=== PATIENT | female | born 1995 ===

== ENCOUNTER 2017-06-04 00:33 | Emergency (ER) | payer SELFPAY ==
[2017-06-04 00:43] VITALS: RESP 16
[2017-06-04] MEDS ORDERED: Sodium Chloride 0.9% 1,000 ML IV ONE (01:07)
[2017-06-04 01:27] VITALS: O2SAT 100
[2017-06-04 01:30] LABS: BASO # 0.1 K/uL (0.0-0.2); BASO % 0.6 % (0.0-2.0); EOS # 0.5 K/uL (0.0-0.7); EOS % 5.2 % (0.0-4.0); HEMATOCRIT 40.5 % (34.0-47.0); LYMPH # 2.1 K/uL (1.0-4.3); LYMPH % 23.2 % (20.0-40.0); MEAN CELL VOLUME 92.6 fL (81.0-99.0); MEAN CORPUSCULAR HEMOGLOBIN 30.8 pg (27.0-31.0); MEAN CORPUSCULAR HGB CONC 33.3 g/dL (33.0-37.0); MEAN PLATELET VOLUME 7.3 fL (7.2-11.7); MONO # 0.8 K/uL (0.0-0.8); MONO % 8.5 % (0.0-10.0); RED CELL DISTRIBUTION WIDTH 12.7 % (11.5-14.5); WHITE BLOOD COUNT 9.1 K/uL (4.8-10.8)
[2017-06-04 01:42] LABS: ALB/GLOB RATIO 1.3 (1.0-2.1); ALCOHOL SERUM < 10 mg/dl (0-10); ALKALINE PHOSPHATASE 80 U/L (38-126); ALT/SGPT 37 U/L (9-52); AST/SGOT 30 U/L (14-36); BILIRUBIN,TOTAL 0.5 mg/dL (0.2-1.3); BLOOD UREA NITROGEN 15 mg/dL (7-17); CALCIUM 9.5 mg/dl (8.6-10.4); CARBON DIOXIDE 25 mmol/L (22-30); CHLORIDE 101 mmol/L (98-107); GFR AFRICAN-AMERICAN > 60; GLUCOSE,RANDOM 83 mg/dL (65-105); MAGNESIUM 1.9 mg/dL (1.6-2.3); POTASSIUM 4.2 mmol/L (3.6-5.2); SODIUM 141 mmol/L (132-148)
[2017-06-04 01:43] LABS: PARTIAL THROMBOPLASTIN TIME 39 SECONDS (21-34)
--- NOTE | 2017-06-04 02:36 | C.PDOC ---
History Of Present Illness Pt had a syncopal episode. Pt states witness told her that she was having minor shaking, but no major convulsions. Time Seen by Provider: 06/04/17 00:48 Chief Complaint (Nursing): Syncope History Per: Patient, Family Onset/Duration Of Symptoms: Other (around 10pm tonight) Current Symptoms Are (Timing): Better Number Of Syncopal Episodes: 1 Activity At Onset Of Symptoms: Standing Associated Symptoms Preceding Syncopal Episode: Lightheadedness Seizure Or Post-ictal Symptoms: denies: Post-ictal Period, Incontinent Of Urine , Incontinent Of Stool, Bit Tongue Fall Associated With With Symptoms: No Severity: Moderate Additional History Per: Prior Records - Symptoms Of CVA Associated Symptoms: denies: Impaired Speech, Seizure Activity, New Vision Deficit(Left), New Vision Deficit(Right), Decreased Ability To Walk, New Confusion Past Medical History Reviewed: Historical Data, Nursing Documentation, Vital Signs Vital Signs: Last Vital Signs Temp 98.0 F 06/04/17 00:38 Pulse 64 06/04/17 01:25 Resp 16 06/04/17 01:25 BP 101/50 L 06/04/17 01:25 Pulse Ox 100 06/04/17 01:25 - Medical History PMH: No Chronic Diseases Surgical History: No Surg Hx Family History: States: Unknown Family Hx - Social History Hx Tobacco Use: No Hx Alcohol Use: Yes Hx Substance Use: Yes (Heavy Marijuana use) Review Of Systems Except As Marked, All Systems Reviewed And Found Negative. Constitutional: Negative for: Fever, Weakness Cardiovascular: Negative for: Chest Pain Respiratory: Negative for: Hemoptysis Gastrointestinal: Positive for: Vomiting (x1). Negative for: Abdominal Pain Musculoskeletal: Negative for: Neck Pain, Back Pain Skin: Negative for: Rash Neurological: Negative for: Weakness, Numbness, Seizures, Altered Mental Status Physical Exam - Physical Exam Appears: Non-toxic, No Acute Distress Skin: Normal Color, Warm, Dry, No Rash Head: No Laceration, Other (Forehead contusion) Eye(s): bilateral: PERRL, EOMI Oral Mucosa: Moist Tongue: Normal Appearing, No Bite Neck: Normal ROM, No Midline Cervical Tenderness, No Step Off Deformity, Supple Chest: Symmetrical, No Deformity Cardiovascular: Rhythm Regular Respiratory: Normal Breath Sounds, No Accessory Muscle Use Gastrointestinal/Abdominal: Soft, No Tenderness Back: No CVA Tenderness, No Vertebral Tenderness Extremity: Normal ROM, No Pedal Edema, No Calf Tenderness, No Deformity, No Swelling, Other (Left knee contusion) Neurological/Psych: Oriented x3, Normal Speech, Normal Cognition, Normal Cranial Nerves, No Cerebellar Signs, Normal Motor, Normal Sensation ED Course And Treatment - Laboratory Results Result Diagrams: 06/04/17 01:23 06/04/17 01:23 Lab Interpretation: No Acute Changes Urine POC: Negative ECG: Interpreted By Me, Viewed By Me ECG Rhythm: Sinus Rhythm, Nonspecific Changes ECG Interpretation: No Acute Changes Rate From EC O2 Sat by Pulse Oximetry: 100 Pulse Ox Interpretation: Normal - Radiology CXR: Interpreted by Me, Viewed By Me CXR Interpretation: Yes: No Acute Disease, Heart Size (WNL) - CT Scan/US CT head Other Rad Studies (CT/US): Read By Radiologist, Radiology Report Reviewed CT/US Interpretation: Normal head/brain CT. Progress - Interventions Interventions:: Observation, Intravenous fluid - Data Reviewed Data Reviewed: Lab, Diagnostic imaging, EKG, Old records - Patient Status Patient status: Mostly improved - Continuity of Care Discussed patient case with:: Patient, Family-HIPPA compliant, ED Nurse - Patient Plan Patient Plan: Discharge, F/U with PCP Disposition Counseled Patient/Family Regarding: Studies Performed, Diagnosis, Need For Followup, Rx Given - Disposition Referrals: [facility] [place] [Outside] Disposition: HOME/ ROUTINE Disposition Time: 02:39 Condition: IMPROVED Additional Instructions: Follow up in the clinic this week for further evaluation and treatment. Return to the ER if you pass out again, develop dizziness, seizure, worsening of symptoms or if you have any other concerns. Instructions: Syncope (ED), Cannabis Abuse (ED) Forms: [employer] (Tajik) - Clinical Impression Clinical Impression: Syncope
[2017-06-04 02:47] VITALS: BP 111/62; PULSE 66; TEMP 98
--- NOTE | 2017-06-04 06:08 | CT ---
PROCEDURE: CT HEAD WITHOUT CONTRAST. HISTORY: Syncope vs. Seizure, hit head COMPARISON: None available. TECHNIQUE: Axial computed tomography images were obtained through the head/brain without intravenous contrast. Radiation dose: Total exam DLP = seven hundred fifty-one mGy-cm. This CT exam was performed using one or more of the following dose reduction techniques: Automated exposure control, adjustment of the mA and/or kV according to patient size, and/or use of iterative reconstruction technique. FINDINGS: HEMORRHAGE: No intracranial hemorrhage. Punctate foci of increased attenuation in the left anterior temporal fossa on series 4, image 5 likely represents volume averaging with the adjacent cranium. BRAIN: No mass effect or edema. No atrophy or chronic microvascular ischemic changes. VENTRICLES: Unremarkable. No hydrocephalus. CALVARIUM: Unremarkable. PARANASAL SINUSES: Unremarkable as visualized. No significant inflammatory changes. MASTOID AIR CELLS: Unremarkable as visualized. No inflammatory changes. OTHER FINDINGS: None. IMPRESSION: No acute intracranial abnormality. If focal neurologic deficit persists, consider MRI. These findings were preliminarily reported at 2:13 a.m. on 06/04/[address] Aime Conrad from [facility].
--- NOTE | 2017-06-04 06:56 | RAD ---
HISTORY: Syncope COMPARISON: No prior. FINDINGS: LUNGS: Mild venous congestion. Patchy increased markings at the right lung base medially. PLEURA: No significant pleural effusion identified, no pneumothorax apparent. CARDIOVASCULAR: Normal. OSSEOUS STRUCTURES: No significant abnormalities. VISUALIZED UPPER ABDOMEN: Normal. OTHER FINDINGS: None. IMPRESSION: Mild venous congestion. Patchy increased markings at the right lung base medially.
--- NOTE | 2017-06-06 18:32 | CARD ---
APPROVED REPORT EKG Measurement Heart [id number] <Conclusion> Sinus rhythm with marked sinus arrhythmia Otherwise normal ECG
== END 2017-06-04 02:47 | disposition home or self-care (01) ==
LOC: C.ER 00:33
DX: R55 Syncope and collapse (principal)
CPT/HCPCS: 70450; 71010; 80053; 82948; 83735; 84484; 84703; 85025; 85378; 85610; 85730; 93005; 99285; G0480; J7040

== ENCOUNTER 2018-12-13 18:05 | Emergency (ER) | payer SELFPAY ==
[2018-12-13 18:10] VITALS: BMI 19.5
[2018-12-13] MEDS ORDERED: Sodium Chloride 0.9% 1,000 ML IV ONE (18:32)
--- NOTE | 2018-12-13 18:34 | C.PDOC ---
History Of Present Illness 23 y/o female pt presents to the ER c/o vaginal bleeding this afternoon. Pt denies pain. Pt notes she found out she was x2 weeks ago and has yet to see OBGYN. Pt is 6 week gestation, LMP October 31. Time Seen by Provider: 12/13/18 18:29 Chief Complaint (Nursing): Female Genitourinary History Per: Patient History/Exam Limitations: no limitations Onset/Duration Of Symptoms: Hrs Current Symptoms Are (Timing): Still Present Past Medical History Reviewed: Historical Data, Nursing Documentation, Vital Signs Vital Signs: Last Vital Signs Temp 98 F 12/13/18 18:10 Pulse 88 12/13/18 18:10 Resp 18 12/13/18 18:10 BP 129/80 12/13/18 18:10 Pulse Ox 100 12/13/18 18:10 Family History: States: Unknown Family Hx - Social History Hx Tobacco Use: No Hx Alcohol Use: No Hx Substance Use: Yes (Heavy Marijuana use) - Immunization History Hx Tetanus Toxoid Vaccination: Yes Hx Influenza Vaccination: No Hx Pneumococcal Vaccination: No Review Of Systems Except As Marked, All Systems Reviewed And Found Negative. Gastrointestinal: Negative for: Abdominal Pain Genitourinary: Positive for: Vaginal Bleeding Physical Exam - Physical Exam Appears: Non-toxic, No Acute Distress Skin: Warm, Dry Head: Normacephalic Eye(s): bilateral: Normal Inspection Nose: Normal Oral Mucosa: Moist Throat: Normal Chest: Symmetrical Cardiovascular: Rhythm Regular Respiratory: Normal Breath Sounds, No Rales, No Rhonchi, No Wheezing Gastrointestinal/Abdominal: Soft, No Tenderness ED Course And Treatment - Laboratory Results Result Diagrams: 12/13/18 19:11 12/13/18 19:11 O2 Sat by Pulse Oximetry: 100 (RA) Pulse Ox Interpretation: Normal Medical Decision Making Medical Decision Making: ro ectopic miscarriage early preg plans: -- chem labs -- blood work -- IV fluids -- transvaginal US us no hr detected ?early preg. case discussed with dr oakley care transition mgr agrees with outpt fu and strict return precautions. pt advised to seek obgyn within 48 hours for further eval. strict return precautionsadvised. pt verbalizes understanding. Disposition - Disposition Referrals: [facility] [Outside] [facility] [Outside] [facility] [Outside] Disposition: HOME/ ROUTINE Disposition Time: 22:59 Condition: GOOD Additional Instructions: return to er with worsening symptoms or concerns. Instructions: Threatened Miscarriage Forms: [employer] (Mongolian) - Clinical Impression Clinical Impression: Threatened miscarriage - Scribe Statement The provider has reviewed the documentation as recorded by the Scribe Diya Tinoco Provider Attestation: All medical record entries made by the Scribe were at my direction and personally dictated by me. I have reviewed the chart and agree that the record accurately reflects my personal performance of the history, physical exam, medical decision making, and the department course for this patient. I have also personally directed, reviewed, and agree with the discharge instructions and disposition.
[2018-12-13] MEDS ORDERED: Sodium Chloride 0.9% 1,000 ML ONE (18:41)
[2018-12-13 19:06] LABS: HCG,QUALITATIVE URINE POSITIVE (NEGATIVE)
[2018-12-13 19:14] LABS: SQUAMOUS EPITHIAL 1 /hpf (0-5); URINE BACTERIA RARE (<OCC); URINE BILIRUBIN NEGATIVE (NEGATIVE); URINE BLOOD 2+ (NEGATIVE); URINE CLARITY Clear (Clear); URINE COLOR Straw (YELLOW); URINE GLUCOSE (UA) NORMAL (Normal); URINE LEUKOCYTE ESTERASE NEG Leu/uL (Negative); URINE PROTEIN NEGATIVE (NEGATIVE); URINE UROBILINOGEN NORMAL mg/dL (0.2-1.0)
[2018-12-13 19:18] LABS: BASO % 0.4 % (0.0-2.0); EOS # 0.6 K/uL (0.0-0.7); EOS % 5.7 % (0.0-4.0); HEMOGLOBIN 13.5 g/dL (11.0-16.0); LYMPH # 1.9 K/uL (1.0-4.3); LYMPH % 18.7 % (20.0-40.0); MEAN CELL VOLUME 92.1 fL (81.0-99.0); MEAN CORPUSCULAR HEMOGLOBIN 31.5 pg (27.0-31.0); MEAN CORPUSCULAR HGB CONC 34.2 g/dL (33.0-37.0); MEAN PLATELET VOLUME 7.3 fL (7.2-11.7); MONO # 0.9 K/uL (0.0-0.8); MONO % 8.7 % (0.0-10.0); NEUT # 6.9 K/uL (1.8-7.0); NEUT % 66.5 % (50.0-75.0); RBC 4.3 Mil/uL (3.80-5.20); RED CELL DISTRIBUTION WIDTH 13.1 % (11.5-14.5); WHITE BLOOD COUNT 10.4 K/uL (4.8-10.8)
[2018-12-13 19:28] LABS: ALB/GLOB RATIO 1.6 (1.0-2.1); ALBUMIN 4.8 g/dL (3.5-5.0); ALT/SGPT 15 U/L (9-52); AST/SGOT 28 U/L (14-36); GFR NON-AFRICAN AMERICAN > 60
[2018-12-13 19:44] LABS: INR 1.2; PROTHROMBIN TIME 13.4 SECONDS (9.7-12.2)
[2018-12-13 19:58] LABS: BLOOD UREA NITROGEN 11 mg/dL (7-17)
[2018-12-13 23:00] VITALS: BP 132/78; PULSE 89; RESP 17; TEMP 98
[2018-12-13 23:28] VITALS: O2SAT 100
--- NOTE | 2018-12-14 10:52 | US ---
Pelvic ultrasound HISTORY: . COMPARISON: None available. TECHNIQUE: Real-time sonography was performed through the pelvis utilizing transabdominal and transvaginal techniques. Findings: Uterus: 9.1 x 3.8 x 5.0 centimeters. Anteverted. Cervix measures 3.1 centimeters. Intrauterine gestational sac measures 7 millimeters, too small to adequately date. Yolk sac measures 3.2 millimeters. Suggestion of a questionable pole with crown-rump length measuring approximately 1.5 millimeters, too small to adequately date. heart rate not well documented. Free fluid noted within the pelvic cul-de-sac. Subchorionic hemorrhage noted adjacent to the gestational sac measuring 1.5 x 0.5 x 1.8 centimeters. Right ovary: 2.4 x 1.6 x 2.5 centimeters. Normal flow. Left ovary: 4.0 x 2.5 x 3.1 centimeters. Normal flow. Heterogeneous echogenic corpus luteal cyst measuring 2.2 x 1.5 x 1.7 centimeters. Adjacent hypoechoic cyst measuring 1.5 x 1.2 x 1.4 centimeters. Impression: 1. Intrauterine gestational sac measures 7 millimeters, too small to adequately date. Yolk sac measures 3.2 millimeters. Suggestion of a questionable pole with crown-rump length measuring approximately 1.5 millimeters, too small to adequately date. heart rate not well documented. Clinical correlation. Continued interval sonographic follow-up is recommended if clinically indicated. 2. Suggestion of subchorionic hemorrhage measuring up to 1.5 centimeters. Clinical correlation. 3. Free fluid within the pelvic cul-de-sac. 4. Left ovarian cysts including an echogenic left ovarian corpus luteal cyst measuring up to 2.2 centimeters. Limited 1st trimester ultrasound for viability purposes only. Continued interval followup with serial ultrasound, serial HCG levels, and gynecological consultation would be helpful if clinically indicated. A preliminary report was generated at 10:15 p.m. on 12/13/[address] Alexandru Funes from [facility]
== END 2018-12-13 22:59 | disposition home or self-care (01) ==
LOC: C.ER 18:05
DX: O20.0 Threatened abortion (principal); Z3A.01 Less than 8 weeks gestation of pregnancy
CPT/HCPCS: 76805; 76817; 80053; 81001; 84702; 84703; 85025; 85610; 85730; 86850; 86900; 99283; J7030

== ENCOUNTER 2019-01-21 11:27 | Emergency (ER) | payer OTHER ==
[2019-01-21 11:27] VITALS: BMI 19.5
[2019-01-21 11:35] VITALS: RESP 18; O2SAT 100
[2019-01-21 11:57] LABS: SQUAMOUS EPITHIAL 1 /hpf (0-5); URINE BACTERIA RARE (<OCC); URINE BILIRUBIN NEGATIVE (NEGATIVE); URINE BLOOD NEGATIVE (NEGATIVE); URINE CLARITY Clear (Clear); URINE COLOR Yellow (YELLOW); URINE GLUCOSE (UA) NORMAL (Normal); URINE LEUKOCYTE ESTERASE NEG Leu/uL (Negative); URINE PROTEIN NEGATIVE (NEGATIVE); URINE UROBILINOGEN NORMAL mg/dL (0.2-1.0)
[2019-01-21 12:17] LABS: BASO % 0.4 % (0.0-2.0); EOS # 0.6 K/uL (0.0-0.7); EOS % 6.7 % (0.0-4.0); HEMOGLOBIN 13.1 g/dL (11.0-16.0); LYMPH # 1.9 K/uL (1.0-4.3); LYMPH % 22.8 % (20.0-40.0); MEAN CELL VOLUME 92.7 fL (81.0-99.0); MEAN CORPUSCULAR HEMOGLOBIN 32.4 pg (27.0-31.0); MEAN PLATELET VOLUME 6.8 fL (7.2-11.7); MONO # 0.8 K/uL (0.0-0.8); MONO % 9.5 % (0.0-10.0); NEUT % 60.6 % (50.0-75.0); RBC 4.03 Mil/uL (3.80-5.20); RED CELL DISTRIBUTION WIDTH 13.1 % (11.5-14.5); WHITE BLOOD COUNT 8.3 K/uL (4.8-10.8)
[2019-01-21 12:29] LABS: ALB/GLOB RATIO 1.7 (1.0-2.1); ALBUMIN 4.5 g/dL (3.5-5.0); ALT/SGPT 24 U/L (9-52); AST/SGOT 25 U/L (14-36); BLOOD UREA NITROGEN 8 mg/dL (7-17); CALCIUM 9.2 mg/dl (8.6-10.4); GFR NON-AFRICAN AMERICAN > 60
[2019-01-21 14:25] VITALS: BP 101/67; PULSE 66; TEMP 98.1
--- NOTE | 2019-01-21 14:26 | US ---
Date of service: 01/21/2019 PROCEDURE: OB Pelvic Ultrasound HISTORY: vaginal bleeding LMP 10/31/2018 COMPARISON: 12/13/2018 FINDINGS: UTERUS: Gestational sac: Sac diameter 28 mm equivalent to 7 weeks 4 days. [place]-rump length 13 mm equivalent to 7 weeks 3 days Heart rate: cardiac activity not detected. This is strongly concerning for demise. age (Ultrasound estimated): 7 weeks 4 days [place]-gestational hemorrhage: None. Date of delivery (Ultrasound estimated) : 09/05/2019 Yolk sac not visualized Uterus measures 9.7 x 6.1 x 5.7 cm. Normal in size and appearance. CERVIX: Measures 3.4 cm. Long and closed. No cervical abnormality seen. RIGHT OVARY: Measures 2.5 x 1.4 x 2.5 cm. No mass lesion. Normal flow. LEFT OVARY: Measures 4.0 x 2.4 x 2.8 cm. No solid mass. Normal flow. Corpus luteum identified, 1.4 x 1.5 x 1.7 cm FREE FLUID: None. OTHER FINDINGS: None. IMPRESSION: Intrauterine gestation of approximately 7 weeks 4 days gestational age. No detectable cardiac activity. This is strongly concerning for demise. No evidence of subchorionic hemorrhage..
--- NOTE | 2019-01-21 17:02 | C.PDOC ---
History Of Present Illness 23 y/o female, , presents to ED complaining of vaginal spotting which started last night. Patient states that the bleeding is scant. She denies dysuria, nausea, vomiting, or abdominal pain. Time Seen by Provider: 01/21/19 11:42 Chief Complaint (Nursing): Female Genitourinary History Per: Patient History/Exam Limitations: no limitations Onset/Duration Of Symptoms: Days Current Symptoms Are (Timing): Still Present Past Medical History Reviewed: Historical Data, Nursing Documentation, Vital Signs Vital Signs: Last Vital Signs Temp 98.1 F 01/21/19 14:24 Pulse 66 01/21/19 14:24 Resp 18 01/21/19 14:24 BP 101/67 01/21/19 14:24 Pulse Ox 100 01/21/19 14:24 Family History: States: No Known Family Hx - Social History Hx Tobacco Use: No Hx Alcohol Use: No Hx Substance Use: Yes (Heavy Marijuana use) - Immunization History Hx Tetanus Toxoid Vaccination: Yes Hx Influenza Vaccination: No Hx Pneumococcal Vaccination: No Review Of Systems Except As Marked, All Systems Reviewed And Found Negative. Constitutional: Negative for: Fever Gastrointestinal: Negative for: Nausea, Vomiting, Abdominal Pain, Diarrhea Genitourinary: Positive for: Other (Vaginal Spotting). Negative for: Dysuria, Vaginal Discharge Musculoskeletal: Negative for: Back Pain Physical Exam - Physical Exam Appears: Non-toxic, No Acute Distress Skin: Warm, Dry Head: Atraumatic Eye(s): bilateral: Normal Inspection Oral Mucosa: Moist Neck: Supple Cardiovascular: Rhythm Regular, No Murmur Respiratory: Normal Breath Sounds, No Rales, No Rhonchi, No Wheezing Gastrointestinal/Abdominal: Soft, No Tenderness Extremity: Bilateral: Atraumatic, Normal ROM Neurological/Psych: Oriented x3, Normal Speech ED Course And Treatment - Laboratory Results Result Diagrams: 01/21/19 12:06 01/21/19 12:06 Lab Results: Total Bilirubin 0.4 mg/dL (0.2-1.3) 01/21/19 12:06 AST 25 U/L (14-36) 01/21/19 12:06 ALT 24 U/L (9-52) 01/21/19 12:06 Alkaline Phosphatase 56 U/L (38-126) 01/21/19 12:06 Total Protein 7.1 g/dL (6.3-8.3) 01/21/19 12:06 Albumin 4.5 g/dL (3.5-5.0) 01/21/19 12:06 Globulin 2.6 gm/dL (2.2-3.9) 01/21/19 12:06 Albumin/Globulin Ratio 1.7 (1.0-2.1) 01/21/19 12:06 Urine Color Yellow (YELLOW) 01/21/19 11:52 Urine Clarity Clear (Clear) 01/21/19 11:52 Urine pH 6.0 (5.0-8.0) 01/21/19 11:52 Ur Specific [place] 1.010 (1.003-1.030) 01/21/19 11:52 Urine Protein Negative mg/dL (NEGATIVE) 01/21/19 11:52 Urine Glucose (UA) Normal mg/dL (Normal) 01/21/19 11:52 Urine Ketones Negative mg/dL (NEGATIVE) 01/21/19 11:52 Urine Blood Negative (NEGATIVE) 01/21/19 11:52 Urine Nitrate Negative (NEGATIVE) 01/21/19 11:52 Urine Bilirubin Negative (NEGATIVE) 01/21/19 11:52 Urine Urobilinogen Normal mg/dL (0.2-1.0) 01/21/19 11:52 Ur Leukocyte Esterase Neg Ten/uL (Negative) 01/21/19 11:52 Urine WBC (Auto) 4 /hpf (0-5) 01/21/19 11:52 Urine RBC (Auto) 1 /hpf (0-3) 01/21/19 11:52 Ur Squamous Epith Cells 1 /hpf (0-5) 01/21/19 11:52 Urine Bacteria Rare (<OCC) 01/21/19 11:52 Beta HCG, Quant 20152.00 mIU/ML 01/21/19 12:06 O2 Sat by Pulse Oximetry: 100 (RA) Pulse Ox Interpretation: Normal - CT Scan/US Obstetrics US Other Rad Studies (CT/US): Read By Radiologist, Radiology Report Reviewed CT/US Interpretation: FINDINGS: UTERUS: Gestational sac: Sac diameter 28 mm equivalent to 7 weeks 4 days. [place]-rump length 13 mm equivalent to 7 weeks 3 days. Heart rate: cardiac activity not detected. This is strongly concerning for demise. age (Ultrasound estimated): 7 weeks 4 days. [place]-gestational hemorrhage: None. Date of delivery (Ultrasound estimated) : 09/05/2019. Yolk sac not visualized. Uterus measures 9.7 x 6.1 x 5.7 cm. Normal in size and appearance. CERVIX: Measures 3.4 cm. Long and closed. No cervical abnormality seen. RIGHT OVARY: Measures 2.5 x 1.4 x 2.5 cm. No mass lesion. Normal flow. LEFT OVARY: Measures 4.0 x 2.4 x 2.8 cm. No solid mass. Normal flow. Corpus luteum identified, 1.4 x 1.5 x 1.7 cm. FREE FLUID: None. OTHER FINDINGS: None. IMPRESSION: Intrauterine gestation of approximately 7 weeks 4 days gestational age. No detectable cardiac activity. This is strongly concerning for demise. No evidence of subchorionic hemorrhage.. Medical Decision Making Medical Decision Making: Plan: --Labs --Urine Culture --UA --Obstetrics US Progress: Reviewed the US reading, showed no heart rate. Patient explained possibility of miscarriage in progress. Patient instructed to follow up with OB in 2-3 days. Patient understands. Disposition - Disposition Referrals: [facility] [Outside] [facility] [Outside] Disposition: HOME/ ROUTINE Disposition Time: 14:30 Condition: GOOD Additional Instructions: JEREL FREEDMAN, thank you for letting us take care of you today. The emergency medical care you received today was directed at your acute symptoms. If you were prescribed any medication, please fill it and take as directed. It may take several days for your symptoms to resolve. Return to the Emergency Department if your symptoms worsen, do not improve, or if you have any other problems. Please contact your doctor or call one of the physicians/clinics you have been referred to that are listed on the Patient Visit Information form that is included in your discharge packet. Bring any paperwork you were given at discharge with you along with any medications you are taking to your follow up v isit. Our treatment cannot replace ongoing medical care by a primary care provider outside of the emergency department. Thank you for allowing the [facility] team to be part of your care today. Your B-HCG level was [id number] today. Follow up with the OB doctor in 1-2 days for re-evaluation and further management. Instructions: Threatened Miscarriage (DC) Forms: [facility] (Algerian) - Clinical Impression Clinical Impression: Threatened miscarriage - Scribe Statement The provider has reviewed the documentation as recorded by the Scribe Eli Dawkins Provider Attestation: All medical record entries made by the Scribe were at my direction and personally dictated by me. I have reviewed the chart and agree that the record accurately reflects my personal performance of the history, physical exam, medical decision making, and the department course for this patient. I have also personally directed, reviewed, and agree with the discharge instructions and disposition.
== END 2019-01-21 15:00 | disposition home or self-care (01) ==
LOC: C.ER 11:27
DX: O20.0 Threatened abortion (principal); Z3A.01 Less than 8 weeks gestation of pregnancy